=== PATIENT | female | born 1945 | race Caucasian/White ===

== ENCOUNTER → 2023-11-11 08:48 | Outpatient (REF) | payer MEDICARE, SELFPAY ==
[2023-11-11 12:56] LABS: % Basophils 0.7 % (0-2); % Eosinophils 6.2 % (0-6); % Immature Granulocytes 0.2 % (0-0.5); % Lymphocytes 32.8 % (20.5-51.1); % Monocytes 7.2 % (1.7-9.3); % Neutrophils 52.9 % (42.2-75.2); Absolute Eosinophils 0.4 10^3/uL (0-0.7); Absolute Monocytes 0.4 10^3/uL (0.1-0.6); Absolute Neutrophils 3.2 10^3/uL (1.4-6.5); Hematocrit 39.5 % (37.0-47.0); Hemoglobin 13.2 g/dL (12.0-16.0); Mean Corp Hgb Conc. 33.4 g/dL (33.0-37.0); Mean Corpuscular Hgb 30.4 pg (27.0-31.0); Mean Platelet Volume 10.7 fL (7.4-10.4); Nucleated Red Blood Cells % 0 %; Platelet Count 215 10^3/uL (130-400); Red Blood Cell Count 4.34 10^6/uL (4.20-5.40); Red Cell Dist. Width 13.7 % (11.5-14.5)
[2023-11-11 13:00] LABS: Urine Albumin Negative (Neg - Trace); Urine Bilirubin Negative (Negative); Urine Character Clear (Clear); Urine Color Yellow; Urine Glucose Negative (Negative); Urine Ketone Negative (Negative); Urine Leukocyte 2+ (Negative); Urine Nitrite Negative (Negative); Urine Occult Blood Trace (Negative); Urine Specific Gravity 1.005 (<1.030); Urine Urobilinogen Negative (Neg - 1+); Urine pH 6.5 (5.0-9.0)
[2023-11-11 13:24] LABS: ALT (SGPT) 16 U/L (0-35); AST (SGOT) 21 U/L (14-36); Albumin 4.3 g/dl (3.5-5.0); Alkaline Phosphatase 86 U/L (38-126); Blood Urea Nitrogen 10 mg/dl (7-17); Calcium 9.6 mg/dl (8.4-10.2); Carbon Dioxide 27 mmol/L (22-30); Chloride 103 mmol/L (98-107); Creatine Phosphokinase 70 U/L (30-135); Free T4 1.48 ng/dl (0.78-2.19); Glucose 100 mg/dl (70-99); HDL Cholesterol 53 mg/dl; LDL Cholesterol, Calculated 33 mg/dl; Magnesium 1.9 mg/dl (1.6-2.3); Phosphorus 4.2 mg/dl (2.5-4.5); Potassium 3.8 mmol/L (3.5-5.1); Sodium 136 mmol/L (135-145); Total Bilirubin 0.7 mg/dl (0.2-1.3); Total Cholesterol 98 mg/dl (50-199); Total Protein 6.8 g/dl (6.3-8.2); Triglyceride 64 mg/dl (10-149); Uric Acid 5.3 mg/dl (2.5-6.2); Very Low Density Lipoprotein 12 mg/dl (0-30); eGFR > 60.00
[2023-11-11 13:30] LABS: Urine Squamous Cell 0-2 /LPF (Few); Urine White Cell 26-30 /HPF (0-5)
[2023-11-11 13:31] LABS: Urine Bacteria Few (Negative); Urine Red Blood Cell 0-2 /HPF (0-2)
[2023-11-11 13:37] LABS: TSH 0.16 uIU/ml (0.47-4.68)
== END ==
LOC: HWRAD 08:48
PROVIDERS: ATTENDING PHYSICIAN Family Medicine
DX: Z78.0 Asymptomatic menopausal state (principal); E78.5 Hyperlipidemia, unspecified; I10 Essential (primary) hypertension; E03.8 Other specified hypothyroidism
CPT/HCPCS: 36415; 77080; 80053; 80061; 81003; 81015; 82550; 83735; 84100; 84439; 84443; 84550; 85025

== ENCOUNTER → 2023-11-13 12:20 | Outpatient (REF) | payer MEDICARE, SELFPAY ==
[2023-11-14 12:19] LABS: Urine Albumin 3+ (Neg - Trace); Urine Bilirubin Negative (Negative); Urine Character Clear (Clear); Urine Color Yellow; Urine Glucose Negative (Negative); Urine Ketone Negative (Negative); Urine Leukocyte Negative (Negative); Urine Nitrite Negative (Negative); Urine Occult Blood Negative (Negative); Urine Specific Gravity 1.005 (<1.030); Urine Urobilinogen Negative (Neg - 1+)
[2023-11-14 12:54] LABS: Urine Bacteria Few (Negative); Urine Calcium Oxalate Crystals Present; Urine Red Blood Cell 0-2 /HPF (0-2); Urine White Cell 0-2 /HPF (0-5)
== END ==
LOC: CLAB 12:20
PROVIDERS: ATTENDING PHYSICIAN Family Medicine
DX: R82.89 Other abnormal findings on cytological and histological examination of urine (principal); R82.79 Other abnormal findings on microbiological examination of urine
CPT/HCPCS: 81003; 81015; 87086; 88112

== ENCOUNTER → 2024-06-22 06:54 | Outpatient (REF) | payer MEDICARE, SELFPAY ==
[2024-06-22 09:46] LABS: % Basophils 0.8 % (0-2); % Eosinophils 9.6 % (0-6); % Immature Granulocytes 0.2 % (0-0.5); % Lymphocytes 32.2 % (20.5-51.1); % Monocytes 7.7 % (1.7-9.3); % Neutrophils 49.5 % (42.2-75.2); Absolute Basophils 0.1 10^3/uL (0-0.2); Absolute Eosinophils 0.6 10^3/uL (0-0.7); Absolute Monocytes 0.5 10^3/uL (0.1-0.6); Absolute Neutrophils 3.1 10^3/uL (1.4-6.5); Hemoglobin 13.6 g/dL (12.0-16.0); Mean Corp Hgb Conc. 31.6 g/dL (33.0-37.0); Mean Corpuscular Hgb 30.8 pg (27.0-31.0); Mean Corpuscular Volume 97.3 fL (81.0-99.0); Mean Platelet Volume 10.6 fL (7.4-10.4); Nucleated Red Blood Cells % 0 %; Platelet Count 213 10^3/uL (130-400); Red Blood Cell Count 4.42 10^6/uL (4.20-5.40); Red Cell Dist. Width 13.6 % (11.5-14.5); White Blood Cell Count 6.3 10^3/uL (4.8-10.8)
[2024-06-22 09:49] LABS: ALT (SGPT) 23 U/L (0-35); AST (SGOT) 25 U/L (14-36); Albumin 4.7 g/dl (3.5-5.0); Alkaline Phosphatase 74 U/L (38-126); Blood Urea Nitrogen 16 mg/dl (7-17); Calcium 9.8 mg/dl (8.4-10.2); Carbon Dioxide 29 mmol/L (22-30); Chloride 102 mmol/L (98-107); Glucose 97 mg/dl (70-99); Potassium 4.2 mmol/L (3.5-5.1); Sodium 143 mmol/L (135-145); Total Bilirubin 0.8 mg/dl (0.2-1.3); Total Protein 7.3 g/dl (6.3-8.2); eGFR > 60.00
[2024-06-22 10:05] LABS: Vitamin D, 25-OH*** 44.8 ng/mL (30-80)
== END ==
LOC: HWLAB 06:54
PROVIDERS: ATTENDING PHYSICIAN Family Medicine
DX: I10 Essential (primary) hypertension (principal); E78.2 Mixed hyperlipidemia; E55.9 Vitamin D deficiency, unspecified
CPT/HCPCS: 36415; 80053; 82306; 85025

== ENCOUNTER 2024-08-19 13:52 | Emergency (ER) | payer MEDICARE, SELFPAY ==
[2024-08-19 14:04] VITALS: BP 156/102
--- NOTE | 2024-08-19 14:04 | ED.GENMED ---
ED Provider Triage
<Debbie Magallanes PA-C - Last Filed: 08/19/24 14:10>
-
Patient seen by provider in Triage?: Seen in Triage
Attestation: A medical screening examination has been initiated by a qualified medical provider. Based on the assessment performed at this time, it has been determined that an emergent medical condition may exist and the patient has been informed
that further medical evaluation and possible additional diagnostic testing may be needed.
HPI: 79yoF here for new onset afib. Started with palpitations this morning. Went to PCP and found to be in afib. Admitted at [facility] last week after a syncopal episode. Had MRI brain and echo which were normal. Diagnosed with dehydration and
told to stop her eplerenone. Denies CP/SOB/dizziness. No blood thinners other than aspirin.
GENERAL: Alert , in no apparent distress
EYE: No visual abnormalities.
NECK: Trachea midline
ENT: No visible abnormalities.
LUNGS: No acute respiratory distress
NEUROLOGICAL: Alert and oriented
SKIN: Skin intact. No visible changes.
MUSCULOSKELETAL: Moving extremities normally
PSYCH: Normal and appropriate interaction.
This is a medical evaluation conducted in person to initiate diagnostic evaluation and provide initial therapeutics. Please see further documentation by the treating clinician.
BP stable in triage and patient well appearing. Cardiac labs, TSH, magnesium, and EKG ordered.
History of Present Illness
<Debbie Magallanes PA-C - Last Filed: 08/19/24 14:10>
General
Chief Complaint: Cardiac Symptoms
Time Seen by Provider: 08/19/24 16:41
<Vaughn Arrieta DO - Last Filed: 08/19/24 17:55>
General
Source: patient
Exam Limitations: none
History of Present Illness
History of Present Illness:
See MDM
Past History
<Debbie Magallanes PA-C - Last Filed: 08/19/24 14:10>
Past History
ED Past Medical History: Asthma, HTN and Hypercholesterolemia
ED Past Surgical History: Orthopedic
Social History
Tobacco: Non-smoker
Alcohol: None
Drug: None
Personal:
Living: with family
<Vaughn Arrieta, DO - Last Filed: 08/19/24 17:55>
Past History
ED Past Medical History: CVA
Phy Exam
<Vaughn Arrieta, DO - Last Filed: 08/19/24 17:55>
Physical Exam
Physical Exam:
See MDM
Course
<Debbie Magallanes PAMacarena - Last Filed: 08/19/24 14:10>
Orders/Labs/Results
Orders:
Orders
08/19/24 13:53
Electrocardiogram (*1) Urgent
Reason for Study: Palpitations
EKG- Treatment ONCE
08/19/24 14:17
Complete Blood Count/With Diff Urgent
Comprehensive Metabolic Panel Urgent
Free T4 Urgent
Magnesium Urgent
NT-proBNP Urgent
TSH Reflex To Free T4 Urgent
Troponin I Urgent
08/19/24 16:35
EKG [Electrocardiogram (*1)] Urgent
Reason for Study: Tachycardia
EKG- Treatment ONCE
08/19/24 16:49
0.9% Sodium Chloride 1000 ml [Nss] 1,000 ml IV BOLUS
Diltiazem HCl [Cardizem] 16 mg IV NOW STA
08/19/24 17:02
Diltiazem HCl [Cardizem] 15 mg IV NOW STA
08/19/24 17:51
Metoprolol [Lopressor] 25 mg PO NOW STA
08/19/24 17:52
Apixaban [Eliquis] 5 mg PO ONCE ONE
Abnormal Lab Results
08/19/24
14:17
MCH 31.5 H pg
(27.0-31.0)
MPV 10.6 H fL
(7.4-10.4)
TSH (Reflex) 0.07 L uIU/ml
(0.47-4.68)
08/19/24 14:17
08/19/24 14:17
Vital Signs
Initial and Last Documented VS:
Initial Vital Signs
Temp Pulse Resp BP Pulse Ox
98.0 F 148 20 156/102 100
08/19/24 14:04 08/19/24 14:04 08/19/24 14:04 08/19/24 14:04 08/19/24 14:04
Last Documented Vital Signs
Temp Pulse Resp BP Pulse Ox
98.0 F 74 18 152/66 96
08/19/24 14:04 08/19/24 17:30 08/19/24 17:30 08/19/24 17:30 08/19/24 17:30
<Vaughn Arrieta, DO - Last Filed: 08/19/24 17:55>
Orders/Labs/Results
Orders:
Orders
08/19/24 13:53
Electrocardiogram (*1) Urgent
Reason for Study: Palpitations
EKG- Treatment ONCE
08/19/24 14:17
Complete Blood Count/With Diff Urgent
Comprehensive Metabolic Panel Urgent
Free T4 Urgent
Magnesium Urgent
NT-proBNP Urgent
TSH Reflex To Free T4 Urgent
Troponin I Urgent
08/19/24 16:35
EKG [Electrocardiogram (*1)] Urgent
Reason for Study: Tachycardia
EKG- Treatment ONCE
08/19/24 16:49
0.9% Sodium Chloride 1000 ml [Nss] 1,000 ml IV BOLUS
Diltiazem HCl [Cardizem] 16 mg IV NOW STA
08/19/24 17:02
Diltiazem HCl [Cardizem] 15 mg IV NOW STA
08/19/24 17:51
Metoprolol [Lopressor] 25 mg PO NOW STA
08/19/24 17:52
Apixaban [Eliquis] 5 mg PO ONCE ONE
Abnormal Lab Results
08/19/24
14:17
MCH 31.5 H pg
(27.0-31.0)
MPV 10.6 H fL
(7.4-10.4)
TSH (Reflex) 0.07 L uIU/ml
(0.47-4.68)
08/19/24 14:17
08/19/24 14:17
Vital Signs
Initial and Last Documented VS:
Initial Vital Signs
Temp Pulse Resp BP Pulse Ox
98.0 F 148 20 156/102 100
08/19/24 14:04 08/19/24 14:04 08/19/24 14:04 08/19/24 14:04 08/19/24 14:04
Last Documented Vital Signs
Temp Pulse Resp BP Pulse Ox
98.0 F 74 18 152/66 96
08/19/24 14:04 08/19/24 17:30 08/19/24 17:30 08/19/24 17:30 08/19/24 17:30
<Vaughn Arrieta, DO - Last Filed: 08/19/24 17:55>
MDM/Problems Addressed
Differential Diagnosis Includes:
HPI and MDM Narrative:
79-year-old female presenting with new onset A-fib. Patient states she felt sudden palpitations earlier this morning. They appeared to resolve. She did have a follow-up with her PCP today and EKG at that time was normal sinus rhythm. Soon
afterwards, patient went back into rapid A-fib. This is a new diagnosis for her. She was recently admitted at an outside hospital for few days due to syncope which was suspected to be from dehydration.
On exam, she is well-appearing nontoxic but she is tachycardic and irregular. She is not a cardioversion candidate because she is not anticoagulated. Will give dose of Cardizem and continue to reassess. She is supposed to follow-up with
cardiology Dr. Tuttle but she has not seen him yet
Physical exam
General: Well appearing and non-toxic
HEENT: protecting airway. Mildly dry mucous membranes
Neck: appears supple
CV: No evidence of cyanosis. Tachycardic and irregular
Resp: No accessory muscle use
Abd: Non-distended
Extremities: No deformities. No leg edema
Neuro: alert
Psych: Normal affect
Skin: Intact
Problems Addressed including Acute and Chronic Conditions affecting care:
1. New onset A-fib
Acuity: acute
Prognosis: stable
Details: Will give IV fluids and IV Cardizem and attempt to chemically cardiovert
Updates
After IV bolus of Cardizem, patient states she is feeling much better. She is still in A-fib but is rate controlled. I did offer admission but patient states she wants to go home and understands risks. Will reach out to cardiology to expedite
follow-up
Differential Diagnosis (but not limited to): A-fib, dehydration, hyperthyroid
Testing considered: Chest x-ray but she denies chest pain or shortness of breath
Drug therapy (if applicable): OTC meds, please see d/c instruction regarding Rx drugs
Amount and/or Complexity of Data Reviewed
Clinical info obtained from: Patient
External data reviewed: N/A
Labs I independently reviewed (but not limited to): Troponin normal
Radiology: N/A
Pulse Ox: not hypoxic
EKG independently reviewed: A-fib with RVR, normal axis, no STEMI
Brewery Cellar Worker: A-fib with RVR
Critical Care: The high probability of a clinically significant, sudden or life threatening deterioration of the cardiovascular system(s) required my full and direct attention, intervention and personal management. The aggregate critical care time
was 33 minutes. This time is in addition to time spent performing reported procedures but includes the following:
[x] Data Review and interpretation
[x] Patient assessment and monitoring of vital signs
[x] Documentation
[x] Medication orders and management
Risk of Complication:
Social Determinants of health: Good social support
Discussed with other providers: N/A
Escalation of Care includes Admit/Obs: After being observed in the Emergency Department, pt stable for discharge.
Occasional wrong word or 'sound a like' substitutions may have occurred due to the inherent limitations of voice recognition software. Read the chart carefully and recognize, using context, where substitutions have occurred.
<Vaughn Arrieta DO - Last Filed: 08/19/24 17:55>
*Critical Care Note
Total Time (30-74mins, 75-104mins- exclusive of procedures): 33 min
ED Attending Note
<Debbie Magallanes PA-C - Last Filed: 08/19/24 14:10>
-
Portions of this chart may have been created with voice recognition software.� Occasional wrong word or��sound alike� substitutions may have occurred due to the inherent limitations of voice recognition software.
Discharge Plan
Departure
Patient Disposition: Home (Routine Discharge)
Date of Disposition: 08/19/24
Time of Disposition: 17:53
Patient with high blood pressure during this ER visit?: Yes
Discharge Problem:
New onset a-fib
Instructions: Atrial fibrillation, Chest Pain CBC Follow Up
Prescriptions:
New
Eliquis 5 mg tablet
5 mg PO BID Qty: 60 0RF
metoprolol succinate [Toprol XL] 25 mg tablet extended release 24 hr
25 mg PO DAILY Qty: 30 0RF
Referrals:
Anthony Cortez MD [Active] -
Lisgar,Johan N., DO [Family Provider] -
Activity Restrictions/Additional Instructions:
Please return for any worsening symptoms.
You may return at any time if you have further concerns.
Please follow up with your doctor at the first available appointment, preferably this week.
You were placed on the cardiac callback tracker. Someone from their office should call you in the next few days. If you do not hear from them in the next few days, please give them a call.
Thank you for choosing [facility].
Interventions
Interventions:
*Risk Screen - Suicide Last Done: 08/19/24 14:04
*General Assessment Last Done: 08/19/24 14:04
*Neglect/Abuse Screening Last Done: 08/19/24 14:04
ED- Fall Risk Assessment Last Done: 08/19/24 16:56
*ED COVID-19 Vaccine History Last Done: 08/19/24 14:04
ED- Pulmonary Assessment Last Done: 08/19/24 16:56
ED- Cardiac Assessment Last Done: 08/19/24 16:56
Discharge Date and Time
Print Language: FRENCH
[2024-08-19 14:25] LABS: % Basophils 0.7 % (0-2); % Eosinophils 3.5 % (0-6); % Immature Granulocytes 0.2 % (0-0.5); % Lymphocytes 33.5 % (20.5-51.1); % Monocytes 6.6 % (1.7-9.3); % Neutrophils 55.5 % (42.2-75.2); Absolute Eosinophils 0.2 10^3/uL (0-0.7); Absolute Monocytes 0.4 10^3/uL (0.1-0.6); Absolute Neutrophils 3.4 10^3/uL (1.4-6.5); Hematocrit 39.7 % (37.0-47.0); Hemoglobin 13.6 g/dL (12.0-16.0); Mean Corp Hgb Conc. 34.3 g/dL (33.0-37.0); Mean Corpuscular Hgb 31.5 pg (27.0-31.0); Mean Corpuscular Volume 91.9 fL (81.0-99.0); Mean Platelet Volume 10.6 fL (7.4-10.4); Nucleated Red Blood Cells % 0 %; Platelet Count 192 10^3/uL (130-400); Red Blood Cell Count 4.32 10^6/uL (4.20-5.40); Red Cell Dist. Width 13.3 % (11.5-14.5)
[2024-08-19 14:56] LABS: NT-proBNP 1300 pg/ml; Troponin I < 0.012 ng/ml
[2024-08-19 15:16] LABS: TSH Reflex To Free T4 0.07 uIU/ml (0.47-4.68)
[2024-08-19 15:25] LABS: ALT (SGPT) 20 U/L (0-35); AST (SGOT) 23 U/L (14-36); Albumin 4.8 g/dl (3.5-5.0); Alkaline Phosphatase 76 U/L (38-126); Blood Urea Nitrogen 7 mg/dl (7-17); Calcium 9.5 mg/dl (8.4-10.2); Carbon Dioxide 28 mmol/L (22-30); Chloride 101 mmol/L (98-107); Glucose 96 mg/dl (70-99); Magnesium 2.1 mg/dl (1.6-2.3); Potassium 3.7 mmol/L (3.5-5.1); Sodium 139 mmol/L (135-145); Total Protein 7.2 g/dl (6.3-8.2); eGFR > 60.00
[2024-08-19 15:57] LABS: Free T4 1.41 ng/dl (0.78-2.19)
[2024-08-19 16:30] VITALS: BP 168/106
[2024-08-19 16:42] VITALS: BMI 35.2
[2024-08-19 17:00] VITALS: BP 155/73
[2024-08-19 17:05] VITALS: BP 166/97
[2024-08-19] MEDS: CARDIZEM 15 MG IV (17:05)
[2024-08-19] MEDS: NSS 1000 IV (17:05)
[2024-08-19 17:30] VITALS: BP 152/66
[2024-08-19] MEDS: LOPRESSOR 25 MG PO (17:54)
[2024-08-19] MEDS: ELIQUIS 5 MG PO (17:55)
== END 2024-08-19 18:15 | disposition home or self-care (01) ==
LOC: EMR 13:52
PROVIDERS: Physician Assistant; EMERGENCY PHYSICIAN Student in an Organized Health Care Education/Training Program; FAMILY PHYSICIAN Family Medicine
DX: I48.91 Unspecified atrial fibrillation (principal); I10 Essential (primary) hypertension; E78.00 Pure hypercholesterolemia, unspecified; J45.909 Unspecified asthma, uncomplicated; Z86.73 Personal history of transient ischemic attack (TIA), and cerebral infarction without residual deficits
CPT/HCPCS: 96374; 96361; 99291; 80053; 83735; 83880; 84439; 84443; 84484; 85025; 93005

== ENCOUNTER → 2024-10-04 07:23 | Outpatient (REF) | payer MEDICARE, SELFPAY ==
[2024-10-04 10:13] LABS: % Basophils 0.7 % (0-2); % Eosinophils 5.1 % (0-6); % Immature Granulocytes 0.2 % (0-0.5); % Lymphocytes 31.3 % (20.5-51.1); % Monocytes 8.1 % (1.7-9.3); % Neutrophils 54.6 % (42.2-75.2); Absolute Eosinophils 0.2 10^3/uL (0-0.7); Absolute Lymphocytes 1.4 10^3/uL (1.2-3.4); Absolute Monocytes 0.4 10^3/uL (0.1-0.6); Absolute Neutrophils 2.4 10^3/uL (1.4-6.5); Hemoglobin 12.9 g/dL (12.0-16.0); Mean Corp Hgb Conc. 33.1 g/dL (33.0-37.0); Mean Corpuscular Hgb 30.6 pg (27.0-31.0); Mean Corpuscular Volume 92.4 fL (81.0-99.0); Mean Platelet Volume 10.9 fL (7.4-10.4); Nucleated Red Blood Cells % 0 %; Platelet Count 188 10^3/uL (130-400); Red Blood Cell Count 4.22 10^6/uL (4.20-5.40); Red Cell Dist. Width 13.9 % (11.5-14.5); White Blood Cell Count 4.5 10^3/uL (4.8-10.8)
[2024-10-04 10:30] LABS: Urine Albumin 1+ (Neg - Trace); Urine Bilirubin Negative (Negative); Urine Character Clear (Clear); Urine Color Yellow; Urine Glucose 1+ (Negative); Urine Ketone Negative (Negative); Urine Leukocyte 3+ (Negative); Urine Nitrite Negative (Negative); Urine Occult Blood 2+ (Negative); Urine Specific Gravity 1.005 (<1.030); Urine Urobilinogen Negative (Neg - 1+)
[2024-10-04 10:42] LABS: ALT (SGPT) 16 U/L (0-35); AST (SGOT) 19 U/L (14-36); Albumin 3.9 g/dl (3.5-5.0); Alkaline Phosphatase 86 U/L (38-126); Blood Urea Nitrogen 9 mg/dl (7-17); Calcium 9.4 mg/dl (8.4-10.2); Carbon Dioxide 30 mmol/L (22-30); Chloride 102 mmol/L (98-107); Creatine Phosphokinase 72 U/L (30-135); Glucose 92 mg/dl (70-99); HDL Cholesterol 48 mg/dl; LDL Cholesterol, Calculated 43 mg/dl; Magnesium 1.9 mg/dl (1.6-2.3); Phosphorus 3.6 mg/dl (2.5-4.5); Potassium 3.3 mmol/L (3.5-5.1); Sodium 139 mmol/L (135-145); Total Bilirubin 1.1 mg/dl (0.2-1.3); Total Cholesterol 102 mg/dl (50-199); Total Protein 6.5 g/dl (6.3-8.2); Triglyceride 58 mg/dl (10-149); Uric Acid 4.4 mg/dl (2.5-6.2); Very Low Density Lipoprotein 11 mg/dl (0-30); eGFR > 60.00
[2024-10-04 11:05] LABS: Free T4 1.49 ng/dl (0.78-2.19)
[2024-10-04 11:19] LABS: TSH 0.11 uIU/ml (0.47-4.68)
[2024-10-04 11:57] LABS: Urine Amorphous Seen
[2024-10-04 12:00] LABS: Urine Red Blood Cell 0-2 /HPF (0-2)
[2024-10-04 12:01] LABS: Urine Mucus Moderate
== END ==
LOC: HWLAB 07:23
PROVIDERS: ATTENDING PHYSICIAN Family Medicine
DX: I10 Essential (primary) hypertension (principal); E78.2 Mixed hyperlipidemia; E07.9 Disorder of thyroid, unspecified
CPT/HCPCS: 36415; 80053; 80061; 81003; 81015; 82550; 83735; 84100; 84439; 84443; 84550; 85025

== ENCOUNTER 2025-01-23 21:54 | Emergency (ER) | payer MEDICARE, SELFPAY ==
[2025-01-23 22:06] VITALS: BP 124/47
[2025-01-23 22:45] VITALS: BP 60/47
[2025-01-23 22:49] LABS: Hematocrit 29.9 % (37.0-47.0); Hemoglobin 10.1 g/dL (12.0-16.0); Mean Corp Hgb Conc. 33.8 g/dL (33.0-37.0); Mean Corpuscular Volume 88.2 fL (81.0-99.0); Nucleated Red Blood Cells % 0 %; Platelet Count 185 10^3/uL (130-400); Red Cell Dist. Width 14.1 % (11.5-14.5)
[2025-01-23 22:51] VITALS: BP 138/60
[2025-01-23 22:56] LABS: INR 1.31; PT 16.6 Sec (11.4-14.6)
[2025-01-23 22:57] LABS: APTT 33.6 Sec (23.4-35.0)
[2025-01-23 23:00] VITALS: BP 146/58
[2025-01-23 23:01] VITALS: BP 90/70
[2025-01-23 23:01] LABS: ALT (SGPT) 12 U/L (0-35); AST (SGOT) 16 U/L (14-36); Albumin 3.6 g/dl (3.5-5.0); Alkaline Phosphatase 62 U/L (38-126); Blood Urea Nitrogen 15 mg/dl (7-17); Calcium 9.5 mg/dl (8.4-10.2); Carbon Dioxide 28 mmol/L (22-30); Chloride 105 mmol/L (98-107); Estimated Creatinine Clearance 38 ml/min; Glucose 158 mg/dl (70-99); Potassium 3.7 mmol/L (3.5-5.1); Sodium 137 mmol/L (135-145); Total Protein 5.8 g/dl (6.3-8.2); eGFR > 60.00
[2025-01-23 23:19] VITALS: BMI 26.4
[2025-01-23 23:22] LABS: Troponin I < 0.012 ng/ml
[2025-01-24] VITALS: BP 125/57
--- NOTE | 2025-01-24 00:07 | ED.GENMED ---
History of Present Illness
General
Chief Complaint: Fainting/Passed Out
Source: patient
Time Seen by Provider: 01/23/25 23:41
History of Present Illness
History of Present Illness:
Patient was moving boxes when she noted blood on the box. Significant bleeding from her lower leg near a varicose vein. She is on thinners. She went inside sat down and then had a syncopal episode x 2. She felt prodromal symptoms. No chest pain
shortness of breath. No trauma. She did not hit her head. She feels perfectly fine now. She has had a history of bleeding varicosities.
Past History
Past History
ED Past Medical History: Asthma, CVA, HTN and Hypercholesterolemia
ED Past Surgical History: Orthopedic
Social History
Tobacco: Non-smoker
Alcohol: None
Drug: None
Personal:
Living: with family
Review of Systems
Review of Systems
All Other Systems: Not applicable
Constitutional: Denies fever or chills
Respiratory: Reports no symptoms; Denies trouble breathing
Cardiac: Denies chest pain or palpitations
Phy Exam
Physical Exam
Physical Exam:
GENERAL: Alert and oriented in no apparent distress. Normocephalic atraumatic
EYE: Orbits normal.
NECK: Supple
CARDIAC: Regular rate and rhythm without any obvious murmurs.
LUNGS: Clear breath sounds,normal
ABDOMEN: Soft, without focal tenderness or distention
NEUROLOGICAL: Alert and oriented , grossly non-focal
SKIN: Warm and dry, no rash or lesion, no discoloration, skin intact.
MUSCULOSKELETAL: No edema,no deformity.Good color. Multiple superficial varicosities both lower legs. Small superficial ulcer of the right lower leg at the bleeding site.
PSYCH: Normal and appropriate interaction.
Course
Orders/Labs/Results
Orders:
Orders
01/23/25 22:13
Electrocardiogram (*1) Urgent
Reason for Study: Other
Other Reason for Exam: Respiratory Distress
Cardiac Monitoring- Treatment ONCE
EKG- Treatment ONCE
IV Insert/Care/Rem.- Treatment PRN
CR Chest - 2 Views Urgent
Comment:
Reason For Exam: respiratory distress
O2 Therapy [RESP] Urgent
Titrate/Wean O2 to maintain O2 sat greater than (%): 93
Special Instructions: TO MAINTAIN CONTINUOUS O2 SATS >/= 93%
Pulse Ox/cont/shift [RESP] Urgent
Quantity: 1
Special Instructions: continuous pulse ox
01/23/25 22:26
Complete Blood Count/With Diff Urgent
Comprehensive Metabolic Panel Urgent
NT-proBNP Urgent
PTT Urgent
Prothrombin Time Urgent
Troponin I Urgent
Abnormal Lab Results
01/23/25
22:26
RBC 3.39 L 10^6/uL
(4.20-5.40)
Hgb 10.1 L g/dL
(12.0-16.0)
Hct 29.9 L %
(37.0-47.0)
MPV 10.9 H fL
(7.4-10.4)
Neutrophils % 76.5 H %
(42.2-75.2)
Lymphocytes % 15.8 L %
(20.5-51.1)
PT 16.6 H Sec
(11.4-14.6)
Glucose 158 H mg/dl
(70-99)
Total Protein 5.8 L g/dl
(6.3-8.2)
01/23/25 22:26
01/23/25 22:26
Vital Signs
Initial and Last Documented VS:
Initial Vital Signs
Temp Pulse Resp BP
97.7 F 71 20 124/47
01/23/25 22:06 01/23/25 22:06 01/23/25 22:06 01/23/25 22:06
Last Documented Vital Signs
Temp Pulse Resp BP Pulse Ox
97.7 F 67 16 125/57 97
01/23/25 22:06 01/24/25 00:15 01/24/25 00:15 01/24/25 00:00 01/24/25 00:15
MDM/Problems Addressed
Differential Diagnosis Includes:
Patient's syncope was clearly vasovagal. She is medically stable. She does have a mildly prolonged QT but history is very consistent with vasovagal. There is been a drop in her hemoglobin but she is currently not bleeding.
*Radiology
Radiology exam reviewed: preliminary read by ED provider (Atelectasis in the lung bases)
*Pulse Oximetry
SaO2: 98
Oxygen Mode of Delivery: Room air
Patient hypoxic: no
*EKG
Interpreted by ED Provider?: Yes
Interpretation: abnormal
Comparison EKG: changes noted
Heart Rate: 88
Rate: normal
Rhythm: sinus
[place]: normal axis
Interval: long QT
QRS Pattern: normal QRS
Ischemia: non-specific ST changes
*Word Processing Specialist Interpretation
Rate: normal
Interpretation: normal
Heart Rate: 82
*Critical Care Note
Total Time (30-74mins, 75-104mins- exclusive of procedures): Not Applicable
Update Note
Update Note:
Procedure: Dermabond to the bleeding varicose vein. Not currently bleeding. Done sterilely.
Hemoglobin has dropped whether this was from the varicose vein or not. The syncope very much sounded vasovagal. She is asymptomatic at this time. Stable for discharge to follow-up
ED Attending Note
-
Portions of this chart may have been created with voice recognition software.� Occasional wrong word or��sound alike� substitutions may have occurred due to the inherent limitations of voice recognition software.
Discharge Plan
Departure
Patient Disposition: Home (Routine Discharge)
Date of Disposition: 01/24/25
Time of Disposition: 00:33
Patient with high blood pressure during this ER visit?: Yes
Discharge Problem:
Bleeding varicose vein, Syncope, Long QT, Anemia
Instructions: Varicose Veins (DC), Syncope (Fainting) (DC), BLOOD PRESSURE
Prescriptions:
No Action
Eliquis 5 mg tablet
5 mg PO BID Qty: 60 0RF
metoprolol succinate [Toprol XL] 25 mg tablet extended release 24 hr
25 mg PO DAILY Qty: 30 0RF
Referrals:
Johan Rice, [Family Provider, Family Practice] - Follow up in 2-3 days
Activity Restrictions/Additional Instructions:
Your QT interval is slightly long on your EKG. Follow this up with your primary physician and cardiology. If you are started on any new medication let them know this fact
Return with any recurrent bleeding
Interventions
Interventions:
*General Assessment Last Done: 01/23/25 22:06
*Neglect/Abuse Screening Last Done: 01/23/25 22:06
*ED- Fall Risk Assessment Last Done: 01/23/25 22:06
*ED COVID-19 Vaccine History Last Done: 01/23/25 22:06
ED- Cardiac Assessment Last Done: 01/23/25 23:19
ED- Neurological Assessment Last Done: 01/23/25 23:19
Discharge Date and Time
Print Language: DANISH
== END 2025-01-24 01:01 | disposition home or self-care (01) ==
LOC: EMR 21:54
PROVIDERS: EMERGENCY PHYSICIAN Emergency Medicine; FAMILY PHYSICIAN Family Medicine
DX: R55 Syncope and collapse (principal); I83.891 Varicose veins of right lower extremity with other complications; D64.9 Anemia, unspecified; I45.81 Long QT syndrome; J98.11 Atelectasis; E78.00 Pure hypercholesterolemia, unspecified; J45.909 Unspecified asthma, uncomplicated; I10 Essential (primary) hypertension; Z86.73 Personal history of transient ischemic attack (TIA), and cerebral infarction without residual deficits; Z91.048 Other nonmedicinal substance allergy status
CPT/HCPCS: 99285; 94760; 71046; 80053; 83880; 84484; 85025; 85610; 85730; 93005

== ENCOUNTER → 2025-01-27 12:44 | Outpatient (REF) | payer MEDICARE, SELFPAY ==
[2025-01-27 15:23] LABS: Hematocrit 27.1 % (37.0-47.0); Hemoglobin 9.1 g/dL (12.0-16.0); Mean Corp Hgb Conc. 33.6 g/dL (33.0-37.0); Mean Corpuscular Volume 89.7 fL (81.0-99.0); Nucleated Red Blood Cells % 0 %; Platelet Count 201 10^3/uL (130-400); Red Cell Dist. Width 14.3 % (11.5-14.5)
== END ==
LOC: HWLAB 12:44
PROVIDERS: ATTENDING PHYSICIAN Family Medicine
DX: I83.899 Varicose veins of unspecified lower extremity with other complications (principal); Z91.89 Other specified personal risk factors, not elsewhere classified; R53.83 Other fatigue
CPT/HCPCS: 36415; 85025

== ENCOUNTER → 2025-02-03 09:38 | Outpatient (REF) | payer MEDICARE, SELFPAY ==
[2025-02-03 13:11] LABS: Hematocrit 27.5 % (37.0-47.0); Hemoglobin 9.1 g/dL (12.0-16.0); Mean Corp Hgb Conc. 33.1 g/dL (33.0-37.0); Mean Corpuscular Volume 91.7 fL (81.0-99.0); Nucleated Red Blood Cells % 0 %; Platelet Count 242 10^3/uL (130-400); Red Cell Dist. Width 14.5 % (11.5-14.5); Reticulocyte Count 2.8 % (0.4-2.8)
== END ==
LOC: HWLAB 09:38
PROVIDERS: ATTENDING PHYSICIAN Family Medicine
DX: R71.0 Precipitous drop in hematocrit (principal)
CPT/HCPCS: 36415; 85025; 85045

== ENCOUNTER → 2025-03-07 08:57 | Outpatient (REF) | payer MEDICARE, SELFPAY ==
[2025-03-07 11:37] LABS: Hematocrit 32.6 % (37.0-47.0); Hemoglobin 10.5 g/dL (12.0-16.0); Mean Corp Hgb Conc. 32.2 g/dL (33.0-37.0); Mean Corpuscular Volume 87.9 fL (81.0-99.0); Nucleated Red Blood Cells % 0 %; Platelet Count 218 10^3/uL (130-400); Red Cell Dist. Width 14.6 % (11.5-14.5)
[2025-03-07 11:58] LABS: Total Iron Binding Capacity 386 ug/dl (265-497)
[2025-03-07 12:23] LABS: Ferritin 14.0 ng/ml (11.1-264.0)
== END ==
LOC: HWLAB 08:57
PROVIDERS: ATTENDING PHYSICIAN Family Medicine
DX: I83.899 Varicose veins of unspecified lower extremity with other complications (principal); R71.0 Precipitous drop in hematocrit
CPT/HCPCS: 36415; 82728; 83550; 85025

== ENCOUNTER 2025-05-11 14:27 | Emergency (ER) | payer MEDICARE, SELFPAY ==
[2025-05-11 14:29] VITALS: BP 122/102
[2025-05-11 14:32] VITALS: BP 122/102
[2025-05-11 14:35] VITALS: BMI 26.3
[2025-05-11 14:52] LABS: Hematocrit 32.9 % (37.0-47.0); Hemoglobin 10.8 g/dL (12.0-16.0); Mean Corp Hgb Conc. 32.8 g/dL (33.0-37.0); Mean Corpuscular Volume 80.2 fL (81.0-99.0); Nucleated Red Blood Cells % 0 %; Platelet Count 170 10^3/uL (130-400); Red Cell Dist. Width 17.3 % (11.5-14.5)
[2025-05-11 15:00] VITALS: BP 128/108
[2025-05-11 15:08] LABS: COVID-19 Antigen Negative (Negative)
[2025-05-11 15:09] LABS: ALT (SGPT) 22 U/L (0-35); AST (SGOT) 25 U/L (14-36); Albumin 4.2 g/dl (3.5-5.0); Alkaline Phosphatase 79 U/L (38-126); Blood Urea Nitrogen 11 mg/dl (7-17); Calcium 8.7 mg/dl (8.4-10.2); Carbon Dioxide 26 mmol/L (22-30); Chloride 104 mmol/L (98-107); Estimated Creatinine Clearance 57 ml/min; Glucose 101 mg/dl (70-99); Potassium 3.0 mmol/L (3.5-5.1); Sodium 139 mmol/L (135-145); Total Protein 6.7 g/dl (6.3-8.2); eGFR > 60.00
--- NOTE | 2025-05-11 15:27 | ED.GENMED ---
History of Present Illness
General
Chief Complaint: Fainting/Passed Out
Source: patient
Exam Limitations: none
Time Seen by Provider: 05/11/25 15:08
Nursing documentation reviewed up to this point in time: agreed with
History of Present Illness
History of Present Illness:
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 Patient states that while she was standing, she felt as though she may 'pass out'. She
sat down on the chair, where she subsequently passed out. Patient was assisted to the floor by the employee and 911 was dispatched. When medics arrived, patient was found to be hypotensive and tachycardic, and was started on IV fluids. At the
time of evaluation ED, patient is without any complaints. However, she does report that she probably should be drinking more water. Patient has had multiple passing out experience in the past. Upon arrival, patient was found to be in rapid atrial
fibrillation. Patient is not sure if she is always in this rhythm. Denies recent illness. Denies recent change in medications or diet. Denies chest palpitations. Denies shortness of breath. Denies dizziness.
Past History
Past History
ED Past Medical History: Asthma, CVA, HTN and Hypercholesterolemia
ED Past Surgical History: Orthopedic
Social History
Tobacco: Non-smoker
Alcohol: None
Drug: None
Personal:
Living: with family
Review of Systems
Review of Systems
Allergies reviewed?: Yes
All Other Systems: ROS reviewed and negative except as documented in HPI and ROS
Constitutional: Reports no symptoms; Denies fever
Respiratory: Reports no symptoms
Cardiac: Reports syncope; Denies chest pain, diaphoresis or palpitations
ABD/GI: Reports no symptoms; Denies nausea or vomiting
Musculoskeletal: Reports no symptoms
Skin: Reports no symptoms
Neurological: Reports no symptoms; Denies dizzy or weakness
Phy Exam
Physical Exam
Physical Exam:
Physical Exam
General: no apparent distress, not acutely ill. afebrile
Head: nc/at. eomi
Neck: supple. no meningeal signs.
Heart: irregularly irregular. tachycardic.
Lungs: no acute respiratory distress. clear bilaterally
Abdomen: normal bowel sounds. not tender.
Neuro: alert and oriented x 3. no focal neurological deficits
Skin: no rash
Psychiatric: well kept. interactive and cooperative
Extremities: no edema. no calf tenderness.
Course
Orders/Labs/Results
Orders:
Orders
05/11/25 14:36
Electrocardiogram (*1) Urgent
Reason for Study: Tachycardia
EKG- Treatment ONCE
05/11/25 14:43
COVID-19 Antigen Urgent
Source: Nasal Swab
Complete Blood Count/With Diff Urgent
Comprehensive Metabolic Panel Urgent
Magnesium Urgent
Comment: MAG ADDED ON BY FLOOR 3:10PM 05-11-25
TSH Reflex To Free T4 Urgent
Influenza A+B Rapid Molecular Urgent
GELA Source: Nasal Swab
Specimen Description:
05/11/25 15:10
Add On- LAB Urgent
Tests Added?: magnesium
05/11/25 15:27
Diltiazem HCl [Cardizem] 15 mg IV NOW STA
05/11/25 15:28
0.9% Sodium Chloride 500 ml [Nss] 500 ml IV BOLUS
05/11/25 15:30
Diltiazem 125 mg/125 ml Nss [Cardizem] 125 mg in 125 ml IV PER PROTOCOL
Initial dose in mg/hr, then titrate:: 5
Titrate to keep:: Heart rate 80-100 bpm
Titrate by mg/hr:: 5 mg/hr
Frequency of titrations (minutes):: 15
Maximum dose in mg/hr:: 15
05/11/25 16:20
Potassium Chloride [KCl] 40 meq PO NOW STA
05/11/25 17:07
Metoprolol Xl [Toprol Xl] 50 mg PO NOW STA
Abnormal Lab Results
05/11/25
14:43
WBC 4.0 L 10^3/uL
(4.8-10.8)
RBC 4.10 L 10^6/uL
(4.20-5.40)
Hgb 10.8 L g/dL
(12.0-16.0)
Hct 32.9 L %
(37.0-47.0)
MCV 80.2 L fL
(81.0-99.0)
MCH 26.3 L pg
(27.0-31.0)
MCHC 32.8 L g/dL
(33.0-37.0)
RDW 17.3 H %
(11.5-14.5)
MPV 11.0 H fL
(7.4-10.4)
Potassium 3.0 L mmol/L
(3.5-5.1)
Glucose 101 H mg/dl
(70-99)
05/11/25 14:43
05/11/25 14:43
Vital Signs
Initial and Last Documented VS:
Initial Vital Signs
Temp Pulse Resp BP
98.3 F 152 18 122/102
05/11/25 14:29 05/11/25 14:29 05/11/25 14:29 05/11/25 14:29
Last Documented Vital Signs
Temp Pulse Resp BP Pulse Ox
98.3 F 64 25 156/59 97
05/11/25 14:29 05/11/25 18:20 05/11/25 18:20 05/11/25 18:20 05/11/25 18:15
MDM/Problems Addressed
MDM/Problems Addressed:
History and exam consistent with a rapid atrial fibrillation, which may have contributed to patient's syncopal episode today. Patient started on Cardizem infusion along with IV fluids.
During treatment, patient noted to convert spontaneously to sinus rhythm, confirmed on repeat EKG.
Patient evaluated in ED by cardiology, Dr. Epps, who feels the patient can be discharged home with continuation of Eliquis, along with starting Toprol XL 50 mg daily, and stopping losartan. Cardiology will make an arrangement urgent outpatient
follow-up upon discharge.
Critical care statement: A total of 40 minutes of critical care time was provided for this patient. This includes management of unstable vital signs, evaluation of the patient at bedside, reviewing the patient's pertinent medical records, discussion
with consultants, review of old EKGs and review of pertinent medical records. This time with separate from time utilized to perform the aforementioned documented procedures
*Pulse Oximetry
SaO2: 94
Oxygen Mode of Delivery: Room air
Patient hypoxic: no
*EKG
Interpreted by ED Provider?: Yes
EKG Intrepretation Date: 05/11/25
Heart Rate: 133
Rate: tachycardiac
Rhythm: a-fib
[place]: normal axis
Interval: normal interval
*Critical Care Note
Total Time (30-74mins, 75-104mins- exclusive of procedures): 40 min
ED Attending Note
-
Portions of this chart may have been created with voice recognition software.� Occasional wrong word or��sound alike� substitutions may have occurred due to the inherent limitations of voice recognition software.
Discharge Plan
Departure
Patient Disposition: Home (Routine Discharge)
Date of Disposition: 05/11/25
Time of Disposition: 18:04
Patient with high blood pressure during this ER visit?: Yes
Condition: Fair
Discharge Problem:
Atrial fibrillation, rapid, Syncope
Instructions: Syncope (Fainting) (DC), Atrial fibrillation (DC)
Prescriptions:
New
metoprolol succinate [Toprol XL] 50 mg tablet extended release 24 hr
50 mg PO DAILY Qty: 30 0RF
No Action
Eliquis 5 mg tablet
5 mg PO BID Qty: 60 0RF
metoprolol succinate [Toprol XL] 25 mg tablet extended release 24 hr
25 mg PO DAILY Qty: 30 0RF
Referrals:
Anthony Cortez MD [Active, Cardiology]
Johan Rice DO [Family Provider, Family Practice]
Activity Restrictions/Additional Instructions:
As discussed, please follow-up with your photovoltaic subcontractor for continual evaluation and treatment. Starting today, you will be taking Toprol-XL 50 mg daily and discontinue losartan. Please continue to take Eliquis as prescribed.
Interventions
Interventions:
*Risk Screen - Suicide Last Done: 05/11/25 14:29
*General Assessment Last Done: 05/11/25 14:29
*Neglect/Abuse Screening Last Done: 05/11/25 14:29
*ED- Fall Risk Assessment Last Done: 05/11/25 14:35
*ED COVID-19 Vaccine History Last Done: 05/11/25 14:34
*ED Influenza Vaccine History Last Done: 05/11/25 14:34
*Nursing Disposition Last Done: 05/11/25 18:37
ED- Cardiac Assessment Last Done: 05/11/25 14:54
ED- Neurological Assessment Last Done: 05/11/25 14:54
Discharge Date and Time
Discharge Date/Time: 05/11/25 18:37
Print Language: PARAGUAYAN
[2025-05-11 15:44] LABS: Magnesium 1.7 mg/dl (1.6-2.3)
[2025-05-11] MEDS: CARDIZEM 15 MG IV (15:48)
[2025-05-11] MEDS: CARDIZEM 125 IV (15:49)
[2025-05-11] MEDS: NSS 500 IV (15:52)
[2025-05-11 16:00] VITALS: BP 129/81
--- NOTE | 2025-05-11 16:47 | CON.CAR ---
Addendum entered and electronically signed by Noam Epps MD 05/11/25 17:32:
I saw and evaluated the patient, and I provided the substantive portion of the medical decision making.
I reviewed and agree with the note by JANINE Anderson and it accurately reflects our care.
I personally performed the medical decision making of the this encounter and my assessment and plan is below:
I met her in Jul 2024 for syncope and PAF with RVR. A 30 d monitor showed PAF with RVR, 3% burden BUT NO Bradycardia. Metoprolol fell off her medication list. She does not feel her AFib and did not have syncope/near syncope on 30 day monitor but
dizziness was associated with SINUS Rhythm. I am suspicious that she has vasovagal syncope/presyncope perhaps at times precipitated by AFIb with RVR. I favor adding back metoprolol, keeping good hydration, checking the echo she has not had yet and
following her closely. She will be seeing Dr. Cortez in followup as her (recently ) was cared for by Dr. Cortez. OK for home. We will arrange followup.
Original Note:
Consultation
Consultation Request
Date/Time Consultation Requested: 05/11/25 160
Date/Time Consultation Performed: 05/11/25 1610
Requesting Provider: Dr. Vidal
Performing Provider: Lissett MEHTA for Dr. Epps
Reason for Consultation: AFIB with RVR, near syncope
Medical History
-
Chief Complaint: near syncope
History of Present Illness:
80 y/o female with PAF, PAC's, remote CVA, HTN, and HLD. She has a history of syncope, which prompted a 30 day monitor, which was unremarkable for cause. She had a cold this week and has been taking tylenol cold and flu. Today, she was running
errands and felt 'not herself'. People in the store asked her if she wanted to sit, but then brought her to the ground and called 911. She did not lose consciousness. She reports she does not drink enough fluid. In ER, she was seen to be in AFIB
with RVR. She was placed on diltiazem drip and given fluids. She is in SR at the time of my assessment.
Past Medical History
Past Medical History: Arrhythmias, CVA, HTN and Hypercholesterolemia
Social History
Personal:
Living: With Family
Family History
Family History: Reviewed & Not Pertinent
Allergies / Home Medications
Allergy/AdvReac Type Severity Reaction Status Date / Time
birch Allergy Unknown Verified 05/11/25 14:36
mold Allergy Unknown Verified 05/11/25 14:36
med rec in ER not done: however, for cardiac medications she is on losartan 25 mg daily, amlodipine 5 mg daily, and Eliquis 5 mg PO BID
Review of Systems
-
History Source: Patient
All other systems: Negative unless noted
Constitutional: Other (vague symptoms- felt unwell as noted above)
Physical Exam
Vital Signs
Temp Pulse Resp BP Pulse Ox
98.3 F 85 17 129/81 97
05/11/25 14:29 05/11/25 16:00 05/11/25 16:00 05/11/25 16:00 05/11/25 16:00
Lab Results
05/11/25 14:43
05/11/25 14:43
Physical Exam
General: Well Developed, Well Nourished and No Apparent Distress
HEENT: Normocephalic and Anicteric
Respiratory: Clear and Non Labored Respirations
Cardiac: Regular Rhythm
Musculoskeletal: No Edema
Skin: Warm and Dry
Neuro: AO x 3
Psych: Calm
Impression / Plan
-
AFIB with RVR:
-paroxysmal
-back in SR
-no conversion pause or bradycardia
-she used to be on metoprolol, but it seems to have fallen off her med list. She is not aware of any issue with it. Resume metoprolol succinate, but at 50 mg dosing. Stop losartan to make BP room. Obtain echo. Follow-up in office will be arranged.
Near syncope:
-she felt unwell today, but did not pass out
-fluids given- she will drink more fluid as she does not think she drinks enough.
-Obtain echo as OP- office will call to schedule
-med adjustments as above
HTN:
-monitor with med adjustments
Hypokalemia:
-replacement ordered and given
Data Reviewed
-
EKG: Tracing Personally Visualized and interpreted (AFIB with RVR, no specific ST/T abnormality 133 BPM)
Medical Tests (Nuc Med, Echo etc): Report Reviewed by me
Labs: Labs Reviewed by me
[2025-05-11 17:00] VITALS: BP 127/97
[2025-05-11] MEDS: KCL 40 MEQ PO (17:14)
[2025-05-11] MEDS: TOPROL XL 50 MG PO (17:14)
[2025-05-11 18:20] VITALS: BP 156/59
== END 2025-05-11 18:37 | disposition home or self-care (01) ==
LOC: EMR 14:27
PROVIDERS: Emergency Medicine; EMERGENCY PHYSICIAN Emergency Medicine; FAMILY PHYSICIAN Family Medicine
DX: R55 Syncope and collapse (principal); E87.6 Hypokalemia; E78.00 Pure hypercholesterolemia, unspecified; I10 Essential (primary) hypertension; I48.0 Paroxysmal atrial fibrillation; J45.909 Unspecified asthma, uncomplicated; Z79.01 Long term (current) use of anticoagulants; Z86.73 Personal history of transient ischemic attack (TIA), and cerebral infarction without residual deficits; Z11.52 Encounter for screening for COVID-19
CPT/HCPCS: 99291; 96374; 80053; 83735; 84443; 85025; 87502; 87811; 93005

== ENCOUNTER → 2025-05-20 13:36 | Outpatient (REF) | payer MEDICARE, SELFPAY | LOC: RCS 13:36 | PROVIDERS: ATTENDING PHYSICIAN Internal Medicine; FAMILY PHYSICIAN Family Medicine | DX: I48.0 Paroxysmal atrial fibrillation (principal); R55 Syncope and collapse | CPT/HCPCS: 93306 ==